=== PATIENT | female | born 1990 | race Caucasian/White ===

== ENCOUNTER 2022-11-17 04:01 | Day surgery (SDC) | payer OTHER ==
[~2022-11-17] VITALS: Ht 162.6 cm; Wt 70.0 kg
[2022-11-17] VITALS (242 sets, daily range): BP systolic 76–137; BP diastolic 35–92
[2022-11-17 08:51] LABS: ALBUMIN 4.5 g/dL (3.2-5.0); ALKALINE PHOSPHATASE 36 u/l (38-126); ANION GAP 16 (6-22 (CALC)); BILIRUBIN, TOTAL 0.5 mg/dL (0.02-1.3); BUN 14 mg/dL (7-17); BUN/CREATININE RATIO 22 (12-20 (CALC)); CARBON DIOXIDE 21 mmol/l (22-30); CHLORIDE 105 mmol/l (95-108); CREATININE 0.6 mg/dL (0.5-1.0); GFR FOR AFR.AMER. > 60 ML/MIN (>=60 (CALC)); GFR OTHER RACES > 60 ML/MIN (>=60 (CALC)); SGOT/AST 65 u/l (14-36); SODIUM 137 mmol/l (137-146); TOTAL PROTEIN 7.6 g/dL (6.3-8.2)
[2022-11-17 09:00] LABS: POTASSIUM 4.7 mmol/l (3.5-5.1)
[2022-11-17 09:14] LABS: BASO% 0.5 % (0-3); HEMATOCRIT 21.3 % (37.0-47.0); IMMATURE GRANULOCYTES 0.2 % (0.0-5.0); LYMPH% 38.9 % (15-41); MEAN CELL VOLUME 63.4 fL CALC (80.0-100.0); MEAN CORPUSCULAR HGB 16.1 pG CALC (26.0-32.0); MEAN CORPUSCULAR HGB CONC 25.4 g/dL CAL (32.0-36.0); MONO% 10.7 % (2-13); NEUT# 2.1 thou/uL (2.00-7.15); NEUT% 49.7 % (42-76); RED BLOOD COUNT 3.36 mill/uL (4.20-5.60); RED CELL DISTRI WIDTH 18.6 % (11.5-15.5)
[2022-11-17 09:29] LABS: HEMOGLOBIN 5.4 g/dl (12.0-16.0)
[2022-11-17 09:51] LABS: BASO% 0.5 % (0-3); HEMATOCRIT 20.3 % (37.0-47.0); LYMPH% 36.7 % (15-41); MEAN CELL VOLUME 63.4 fL CALC (80.0-100.0); MEAN CORPUSCULAR HGB 16.3 pG CALC (26.0-32.0); MEAN CORPUSCULAR HGB CONC 25.6 g/dL CAL (32.0-36.0); MONO% 12.6 % (2-13); NEUT# 2.23 thou/uL (2.00-7.15); NEUT% 50.2 % (42-76); RED BLOOD COUNT 3.2 mill/uL (4.20-5.60); RED CELL DISTRI WIDTH 18.4 % (11.5-15.5)
[2022-11-17 09:53] LABS: HEMOGLOBIN 5.2 g/dl (12.0-16.0)
[2022-11-17] MEDS ORDERED: CLONIDINE0.1 MG PO (16:20)
[2022-11-17] MEDS ORDERED: NALTREXONE50 MG PO (16:20)
[2022-11-17] MEDS ORDERED: KLONOPIN2 MG PO (16:21)
[2022-11-17 18:31] LABS: BASO% 0.6 % (0-3); IMMATURE GRANULOCYTES 0.3 % (0.0-5.0); LYMPH% 22.1 % (15-41); MEAN CELL VOLUME 63.4 fL CALC (80.0-100.0); MEAN CORPUSCULAR HGB 16.3 pG CALC (26.0-32.0); MEAN CORPUSCULAR HGB CONC 25.7 g/dL CAL (32.0-36.0); MONO% 9.2 % (2-13); NEUT# 2.36 thou/uL (2.00-7.15); NEUT% 67.8 % (42-76); RED BLOOD COUNT 2.95 mill/uL (4.20-5.60); RED CELL DISTRI WIDTH 18.8 % (11.5-15.5)
[2022-11-17 18:35] LABS: HEMOGLOBIN 4.8 g/dl (12.0-16.0)
[2022-11-17 18:36] LABS: HEMATOCRIT 18.7 % (37.0-47.0)
[2022-11-18 03:54] VITALS: BP 109/68
[2022-11-18 06:26] LABS: ALBUMIN 4.2 g/dL (3.2-5.0); ALKALINE PHOSPHATASE 44 u/l (38-126); ANION GAP 14 (6-22 (CALC)); BILIRUBIN, TOTAL 0.5 mg/dL (0.02-1.3); BUN 11 mg/dL (7-17); BUN/CREATININE RATIO 16 (12-20 (CALC)); CARBON DIOXIDE 21 mmol/l (22-30); CHLORIDE 108 mmol/l (95-108); CREATININE 0.7 mg/dL (0.5-1.0); GFR FOR AFR.AMER. > 60 ML/MIN (>=60 (CALC)); GFR OTHER RACES > 60 ML/MIN (>=60 (CALC)); MAGNESIUM 2.2 mg/dL (1.6-2.3); POTASSIUM 4.4 mmol/l (3.5-5.1); SGOT/AST 38 u/l (14-36); SODIUM 139 mmol/l (137-146); TOTAL PROTEIN 6.8 g/dL (6.3-8.2)
[2022-11-18 07:30] VITALS: BP 101/65
[2022-11-18 08:00] VITALS: BP 109/68
[2022-11-18 12:00] VITALS: BP 109/68
== END 2022-11-18 15:34 | disposition home or self-care (01) | DRG 897 ==
LOC: ANR 04:01 → MS2 04:04 → ANR 07:00 → MS2 18:27 → ANR 11-18 15:34
PROVIDERS: ATTEND Anesthesiology Critical Care Medicine
DX: F11.20 Opioid dependence, uncomplicated (principal)
CPT/HCPCS: J2354; J3475; P9047